=== PATIENT | female | born 1965 | race Caucasian/White ===

== ENCOUNTER → 2017-03-27 | Outpatient (CLI) | payer OTHER ==
[~2017-03-27] MED LIST: ALBUTEROL17 GM INH; FLONASE 0.05% N16 G1; LIPITOR40 MG PO; LISINOPRIL PO; LORTAB 10-3251 EACH PO; PAXIL40 MG PO; PROPRANOLOL HCL10 MG PO; ZYRTEC10 M2 PO
--- NOTE | ~2017-03-27 | EKG ---
PATIENT: SHEY ALFARO UNIT #: [id number] Ventricular Rate: 70 BPM Atrial Rate: 70 BPM P-R Interval: 130 ms QRS Duration: 66 ms Q-T Interval: 400 ms QTC Calculation(Bezet): 432 ms P [place]: 18 degrees Calculated R [place]: 37 degrees Calculated T [place]: 52 degrees Diagnosis Line: Normal sinus rhythm Diagnosis Line: Low voltage QRS Diagnosis Line: Poor R wave progression questionable lead position Diagnosis Line: or body habitus Otherwise normal ECG Diagnosis Line: No previous ECGs available Diagnosis Line: Confirmed by JUSTIN SALGUERO MD ([id number]) on 03/27/2017 Diagnosis Line: 9:44:28 AM INTERPRETING MD: JOSE M CORLEY
== END | disposition home or self-care (01) ==
LOC: CAMB 08:25
DX: Z01.810 Encounter for preprocedural cardiovascular examination (principal); K43.9 Ventral hernia without obstruction or gangrene
CPT/HCPCS: 93005

== ENCOUNTER 2017-04-05 05:17 | Inpatient (IN) | payer OTHER ==
--- NOTE | ~2017-04-05 | DS ---
Unit #: [id number] #: [id number] Patient: SHEY ALFARO [id number] [address] [place], [place] [address] [id number] MR#: [id number] NAME: SHEY ALFARO ROOM: 47 Age: 51 Sex: F Admission Date: 04/05/2017 : 1965 Discharge Date: 04/09/2017 Attending Physician: Rick Concepcion Jr., M.D. Primary Care Physician: Generic Doctor Not In System DISCHARGE SUMMARY ADMITTING/FINAL DIAGNOSIS Large, incarcerated ventral hernia. SECONDARY DIAGNOSES 1. Morbid obesity. 2. Postoperative pain requiring intravenous pain medications. OPERATIONS ON THIS ADMISSION Laparoscopic ventral hernia repair with reduction on day of admission. BRIEF SUMMARY The patient is a 51-year-old, obese female, who presented to the office complaining of an incarcerated upper midline ventral hernia. She had no obstructive symptoms and it was felt this should be repaired since it was causing pain and was approximately the size of a baseball. Physical examination on admission revealed an incarcerated upper midline hernia, otherwise, besides her obesity, was unremarkable. Admitting laboratory values basically within normal limits. HOSPITAL COURSE The patient was admitted and underwent laparoscopic reduction and repair of a ventral hernia. Postop, the patient did have significant amount of pain requiring IV pain medications. Also developed anemia, probably secondary to acute blood loss from bleeding from the omentum that was reduced intra-abdominally. At present, her hemoglobin is stable at 9.4 g. She is ambulating well, wounds are clean and healing well. Her repair is intact. There is a slight seroma present as expected but her abdomen is soft, nontender and benign. She is afebrile. The plan will be to discharge patient home on a regular diet, no lifting more than 5-10 pounds, keeping wounds clean and dry, and [place] 10 mg/325, one or two p.o. q.4 to 6 hours p.r.n. She will be calling office for a followup appointment in approximately one week. She will be keeping her wounds clean and dry. She will resume all of her home medications. Dictated by... Rick Concepcion Jr., M.D. Unit #: [id number] #: [id number] Patient: SHEY ALFARO JMB/rafael TD: 04/09/2017 08:58 JOB #: [id number] DISCHARGE SUMMARY Page 1 of 1 X Rick Concepcion MD X DISCHARGE SUMMARY
--- NOTE | ~2017-04-05 | BMI ---
[facility] Nutrition Therapy DATE: 04/06/17 Patient: SHEY ALFARO Physician: SYED Address: [address] Room/Bed: [address] [place] [address], Zip: [place] [address] Admit Date: 04/05/17 Date of : [birth year] Height: Weight: HIGH BMI NOTE: ANTHROPOMETRICS: HT: 60" WT: 107.3 KG BMI: 46.2 DIET: REGULAR RECOMMENDATIONS: 1. ADD A HEART HEALTHY DIET RESTRICTION TO PROMOTE GRADUAL WEIGHT LOSS TOWARDS A HEALTHY BMI. Respectfully, ALIRIO GARCIA RD, LD Food and Nutritional Services [facility] cc: client file
--- NOTE | ~2017-04-05 | OR ---
Unit #: [id number] #: [id number] Patient: SHEY ALFARO [id number] [address] [place], [place] [address] [id number] MR#: [id number] NAME: SHEY ALFARO ROOM: 478 Date of Procedure: 04/05/2017 Admission Date: 04/05/2017 Surgeon: Rick Concepcion Jr., M.D. : 1965 Attending Physician: Rick Concepcion Jr., M.D. OPERATIVE REPORT INDICATION FOR PROCEDURE The patient is a 51-year-old white female, who is morbidly obese, recently presented to the office complaining of a large upper midline ventral hernia. She has had no obstructive symptoms, but this has caused discomfort and is enlarging in size and she desired repair of it. She is brought in this time for laparoscopic ventral hernia repair, possible open. She understands the procedure including the risks, including that of bleeding, intra-abdominal organ injury, infection, and recurrence, and consents. PREOPERATIVE DIAGNOSIS Large incarcerated upper midline ventral hernia. POSTOPERATIVE DIAGNOSES Large incarcerated upper midline ventral hernia, noting approximately 6 cm defect with a significant amount of omentum incarcerated within it. ANESTHESIA General with endotracheal intubation and 0.5% Marcaine with epinephrine locally. [employer] Kathia Gleason. PROCEDURE PERFORMED Reduction and repair of large ventral incarcerated hernia. DESCRIPTION OF PROCEDURE The patient was positioned in supine position. After being anesthetized and intubated, she was prepped and draped in routine fashion for laparoscopic ventral hernia repair. A 0.5 cm incision was made in the right upper quadrant abdominal wall area. A 5-mm Optiview introduced into the abdomen. The abdomen was then inflated with CO2 gas. Camera was introduced in the abdomen. There was no evidence of any injury related to introduction of the Optiview. Additional 5-mm port was placed in the left upper quadrant and left lower quadrant abdominal wall areas and an 11-mm port in the right lower quadrant abdominal wall area. At this point, the omentum was reduced from the hernia with some moderate difficulty and several small vessels were hemoclipped for bleeding and for hemostasis. After the omentum was completely removed, the defect was visualized. It was approximately 6 cm or so in diameter. The falciform was taken down and fatty tissue inferiorly towards the bladder and an 8 x 10 inch Unit #: [id number] #: [id number] Patient: SHEY ALFAROight mesh was then tacked in 4 corners, soaked in antibiotic solution and put intra-abdominally, using the Endo Close needle technique, it was pulled up against the anterior abdominal wall. It was then fixed with absorbable tacks and after it was fixed, the sutures holding it up were then lysed. The larger port site defect was closed with neoClose technique. CO2 was expressed from the abdomen and the port sites were injected with 0.5% Marcaine with epinephrine. The port sites were irrigated and after hemostasis achieved with Bovie cautery, skin edges approximated with stainless-steel skin clips and skin stapling device. Sterile dressings were applied externally. Estimated blood loss less than 75 mL. The patient received less than 1500 mL crystalloid solution during the procedure. Sponges and instrument counts were correct x3. No drains used. No complications. The patient was taken to the recovery room with stable vital signs in satisfactory condition. Dictated by... Rick Concepcion Jr., MShantell JAMES/argelia TD: 04/06/2017 01:17 JOB #: [id number] OPERATIVE REPORT Page 1 of 1 X Rick Concepcion MD X PROCEDURE OPERATIVE NOTE
[~2017-04-05 05:17] MED LIST changes: -LORTAB 10-3251 EACH PO
[2017-04-05 17:52] LABS: HEMATOCRIT 37.6 % (35.0-45.0); HEMOGLOBIN 12.4 gm/dL (12.0-16.0)
[2017-04-06 07:55] LABS: HEMATOCRIT 31.6 % (35.0-45.0); MEAN CELL VOLUME 92.8 FL (83-96); MEAN CORPUSCULAR HEMOGLOBIN 30.6 PG (28-34); MEAN CORPUSCULAR HGB CONC 32.9 g/dL (30-36); MEAN PLATELET VOLUME 7.2 FL (6.5-11.5); RED BLOOD COUNT 3.4 X10e (3.90-5.30); RED CELL DISTRIBUTION WIDTH 13.2 % (11.0-15.5); WHITE BLOOD COUNT 11.1 X10e3 (4.0-10.5)
[2017-04-06 08:08] LABS: HEMOGLOBIN 10.4 gm/dL (12.0-16.0)
[2017-04-06 08:13] LABS: HEMATOCRIT 31.5 % (35.0-45.0); HEMOGLOBIN 10.4 gm/dL (12.0-16.0); MEAN CELL VOLUME 93.2 FL (83-96); MEAN CORPUSCULAR HEMOGLOBIN 30.8 PG (28-34); MEAN PLATELET VOLUME 6.9 FL (6.5-11.5); RED BLOOD COUNT 3.38 X10e (3.90-5.30); RED CELL DISTRIBUTION WIDTH 13.7 % (11.0-15.5); WHITE BLOOD COUNT 10.1 X10e3 (4.0-10.5)
[2017-04-06 09:23] LABS: BUN/CREATININE RATIO 12.5; CALCIUM SERUM 8.5 mg/dL (8.4-10.2); CREATININE SERUM 1.2 mg/dL (0.6-1.4); GLOM FILT RATE Estimated 51.9 mL/min (>60); POTASSIUM 4.8 mmol/L (3.5-5.1)
[2017-04-07 03:41] LABS: HEMATOCRIT 29.6 % (35.0-45.0); HEMOGLOBIN 9.7 gm/dL (12.0-16.0); MEAN CELL VOLUME 92.3 FL (83-96); MEAN CORPUSCULAR HEMOGLOBIN 30.3 PG (28-34); MEAN CORPUSCULAR HGB CONC 32.8 g/dL (30-36); MEAN PLATELET VOLUME 7.4 FL (6.5-11.5); RED BLOOD COUNT 3.21 X10e (3.90-5.30); RED CELL DISTRIBUTION WIDTH 13.5 % (11.0-15.5); WHITE BLOOD COUNT 11.4 X10e3 (4.0-10.5)
[2017-04-07 03:55] LABS: CALCIUM SERUM 8.4 mg/dL (8.4-10.2); GLOM FILT RATE Estimated 64.8 mL/min (>60); MAGNESIUM 1.7 mg/dL (1.6-3.0); POTASSIUM 4.3 mmol/L (3.5-5.1)
[2017-04-09 03:51] LABS: INR 1.1; PARTIAL THROMBOPLASTIN TIME 25.9 SECONDS (23.5-31.3); PROTHROMBIN TIME (PATIENT) 11.7 SECONDS (9.6-11.5)
[2017-04-09 04:24] LABS: BASOPHIL% 0.3 % (0-2.5); EOSINOPHIL# 0.1 X10e3 (0-0.7); EOSINOPHIL% 1.5 % (0.0-7.0); HEMATOCRIT 27.8 % (35.0-45.0); HEMOGLOBIN 9.4 gm/dL (12.0-16.0); LYMPHOCYTE# 2.4 X10e3 (1.0-3.5); LYMPHOCYTE% 25.3 % (17.0-45.0); MEAN CELL VOLUME 92.3 FL (83-96); MEAN CORPUSCULAR HEMOGLOBIN 31.2 PG (28-34); MEAN CORPUSCULAR HGB CONC 33.8 g/dL (30-36); MEAN PLATELET VOLUME 7.8 FL (6.5-11.5); MONOCYTE# 0.9 X10e3 (0-1.0); MONOCYTE% 9.8 % (3.0-12.0); NEUTROPHIL# 5.9 X10e3 (1.5-7.1); NEUTROPHIL% 63.1 % (40-75); PLATELET COUNT 179 X10e3 (140-420); RED BLOOD COUNT 3.01 X10e (3.90-5.30); RED CELL DISTRIBUTION WIDTH 13.3 % (11.0-15.5); WHITE BLOOD COUNT 9.4 X10e3 (4.0-10.5)
[2017-04-09 04:38] LABS: DIFF IND NO
[2017-04-09 07:31] LABS: ALBUMIN SERUM 2.5 g/dL (3.5-5.0); BILIRUBIN,TOTAL 1.4 mg/dL (0.2-2.0); BUN/CREATININE RATIO 11.42; CALCIUM SERUM 8.4 mg/dL (8.4-10.2); CREATININE SERUM 0.7 mg/dL (0.6-1.4); GLOM FILT RATE Estimated 99.6 mL/min (>60); POTASSIUM 3.6 mmol/L (3.5-5.1); PROTEIN TOTAL SERUM 5.6 g/dL (6.0-8.3)
[2017-04-09] MEDS ORDERED: LORTAB 10-3251 EACH PO (09:31)
== END 2017-04-09 12:32 | disposition home or self-care (01) | DRG 354 ==
LOC: CSUR 05:17 → C4C 09:20 → CEDOF 09:20 → CSUR 09:20 → CEDOF 09:28 → C4C 10:23
PROVIDERS: Specialist; Surgery
PROC: 0WUF4JZ Supplement Abdominal Wall with Synthetic Substitute, Percutaneous Endoscopic Approach (ICD-10-PCS; principal; 2017-04-05 07:30)
DX: K43.6 Other and unspecified ventral hernia with obstruction, without gangrene (principal); Z68.42 Body mass index [BMI] 45.0-49.9, adult; E66.01 Morbid (severe) obesity due to excess calories; D62 Acute posthemorrhagic anemia; I10 Essential (primary) hypertension; E86.1 Hypovolemia; J30.9 Allergic rhinitis, unspecified; F41.9 Anxiety disorder, unspecified; F32.9 Major depressive disorder, single episode, unspecified; Z88.0 Allergy status to penicillin; Z88.2 Allergy status to sulfonamides; R00.0 Tachycardia, unspecified; M19.90 Unspecified osteoarthritis, unspecified site
CPT/HCPCS: 80048; 80053; 82947; 83735; 85014; 85018; 85025; 85027; 85610; 85730; 94640; 94760; C1713; C1781; J0330; J1100; J1650; J2250; J2405; J2710; J3010; J3370